=== PATIENT | male | born 1945 | race Caucasian/White ===

== ENCOUNTER 2019-07-28 17:42 | Inpatient (IN) ==
[2019-07-28] MEDS ORDERED: NS 1,000 ML IV ONE ×2 (17:53→20:33)
[2019-07-28] MEDS ORDERED: ZOFRAN IV ONE ×2 (17:53→20:27)
[2019-07-28] MEDS ORDERED: BENTYL IM ONE (18:08)
--- NOTE | 2019-07-28 18:12 | PROVIDER DOCUMENTATION ---
HPI-Abdominal Pain/GI Problem - General Chief Complaint: Nausea/Vomiting Stated Complaint: N/V Time Seen by Provider: 07/28/19 17:49 Source: patient Allergies/Adverse Reactions: Patient Allergies Allergy/AdvReac Type Severity Reaction Status Date / Time hydrocodone Allergy HIVES Verified 07/28/19 19:29 Home Medications: Home Medication List Medication Instructions Recorded Confirmed Last Taken Type Esomeprazole Magnesium [Nexium] 40 mg PO DAILY 05/17/14 07/28/19 03/13/15 19:00 History Diltiazem C.d. [Cardizem C.d] 240 mg PO DAILY 03/13/15 07/28/19 03/13/15 08:30 History Metoprolol Succinate E.r. [Toprol 100 mg PO BID 03/13/15 07/28/19 03/13/15 08:30 History Xl] Ezetimibe 10 mg PO DAILY 07/28/19 07/28/19 Unknown History Omeprazole 20 mg PO BID 07/28/19 07/28/19 Unknown History PRAVAstatin [Pravachol] 40 mg PO DAILY 07/28/19 07/28/19 Unknown History Sitagliptin Phos/Metformin HCl 50 mg PO DAILY 07/28/19 07/28/19 Unknown History [Janumet Xr 50-1,000 mg Tablet] Tamsulosin [Flomax] 0.4 mg PO DAILY 07/28/19 07/28/19 Unknown History - History of Present Illness-ABD Nature of Presenting Problems: 73 yr old M, hx of COPD, presenting with a two day hx of worsening SOB, nausea, vomiting (15 episodes in two days), abdominal soreness and bloody stools. No prior episodes; no sick contacts. No fever. Pt denies any changes to his routine; no recent surgeries; had a colonoscopy in February 2019. Abdominal Pain Onset Location: reports: LLQ Review of Systems - Adult - REVIEW OF SYSTEMS - ADULT Constitutional: reports: see HPI Eyes: reports: no symptoms reported Ears, Nose, Mouth & Throat: reports: no symptoms reported Cardiovascular: reports: no symptoms reported Respiratory: reports: see HPI Gastrointestinal: reports: see HPI Genitourinary: reports: no symptoms reported Musculoskeletal: reports: no symptoms reported Integumentary: reports: no symptoms reported Neurological: reports: no symptoms reported Psychiatric: reports: no symptoms reported Endocrine: reports: no symptoms reported Past History - Adult - PAST MEDICAL HISTORY-ADULT Review of Records: reports: Nursing Assessment Review Major Childhood Illnesses: reports: denies history Cardiovascular: reports: HTN Respiratory: reports: COPD Gastrointestinal: reports: GERD - PRIOR SURGERIES/PROCEDURES Surgical/Procedure History: reports: orthopedic (extremity) - IMMUNIZATION STATUS Childhood Immunizations: See Nurse Assessment Flu Vaccine: See Nurse Assessment - SOCIAL HISTORY Living Situation: family Physical Exam-General - PHYSICAL EXAM-ADULT Initial Vital Signs Reviewed: Yes - CONSTITUTIONAL General Appearance: alert, mild distress - EYES Eyes: PERRL/EOMI - HEAD, EARS, NOSE, MOUTH & THROAT HENMT: normocephalic/atraumatic, moist mucous membranes - RESPIRATORY Respiratory: chest non-tender, no respiratory distress, decreased breath sounds - CARDIOVASCULAR Cardiovascular: regular rate, rhythm - GASTROINTESTINAL (ABDOMEN) Abdominal Exam: soft, tenderness (generalized) - GENITOURINARY Rectal Exam: prostate enlarged/nodule Hemoccult Exam: heme negative stool - MUSCULOSKELETAL Extremity: no pedal edema - SKIN Integumentary: normal color, normal turgor, warm/dry - PSYCHIATRIC Psych/Mental Status: normal mood/affect, oriented x 3 Progress - PLAN OF CARE/RESULTS Progress/Plan/Lab Results: Orders Category Date Time Status AMYLASE [CHEM] Stat Lab 07/28/19 17:53 Uncollected CBC WITH ELECTRONIC DIFF [HEME] Stat Lab 07/28/19 17:52 Uncollected COMPREHENSIVE METABOLIC PANEL [CHEM] Stat Lab 07/28/19 17:53 Uncollected LIPASE [CHEM] Stat Lab 07/28/19 17:53 Uncollected 0.9% Sodium Chloride Inj [Ns] 1,000 ml Med 07/28/19 17:53 Active IV 999 mls/hr Ondansetron [Zofran] Med 07/28/19 17:53 Discontinued 8 mg IV NOW ONE Bladder scan at bedside shows post-void residual greater than 999mL; Ferrari cath placed and 1.1 L voided. Spoke with Dr. Henderson, who kindly accepts pt for admission; given WBC, platelike opacities that could be possible pneumonia on CT, and bladder findings. Result Diagrams: 07/28/19 19:04 07/28/19 19:04 - EKG 1 Time of EKG reading by physician:: 19:13 EKG Read and Signed by:: Liberty Huang EKG Interpretation (*Must complete 3 of following elements*): Abnormal Rate: 97 Rhythm: sinus rhythm [place]: normal QRS: normal, RBB (incomplete) MI Interval: normal ST Wave: normal - CT/MRI 1 CT Study: Abdomen, Pelvis Impression: See EMR Report CT Results: constipation, impaction; bladder outlet obstruction - CONSULTS/PCP/HOSPITALIST Notification #1 *Consult/PCP/Hospitalist*: Dr. Henderson Time Discussed: 21:45 Consult Disposition: Admit Departure - Departure Date of Disposition Decision: 07/28/19 Time of Disposition Decision: 21:46 DIAGNOSIS: Urinary (tract) obstruction Disposition: ADMITTED INPATIENT 09 Certified Medical Emergency: Emergent Condition: Fair - Critical Care Note This patient required my direct & personal management of CC.: No Attestation - Physician/ YARELI Attestation Patient care was provided by Advanced Practice Provider:: No The physician spent face to face time with patient:: Yes Advanced Practice Provider documentation review:: Supervising physician onsite and consulted in the evaluation and care of this patient. The physician did have a face to face encounter with the patient.
--- NOTE | 2019-07-28 18:58 | Diag Imaging Result Doc PS360 ---
EXAM: CHEST-2 VIEWS 07/28/2019 HISTORY: short of breath TECHNIQUE: AP and lateral chest COMMENT: There may be COPD. Compared to the previous study of 03/13/2015 there has been no significant change. IMPRESSION: Stable chest. Electronically signed by Akira Ragland 07/28/2019 6:56 PM
[2019-07-28] MEDS ORDERED: DUONEB (A & A) INH ONE (19:17)
[2019-07-28 19:25] LABS: BASO# 0.02 X1000 (0.0-0.2); BASO% 0.1 % (0.0-0.8); EOS# 0.07 X1000 (0.0-0.7); EOS% 0.4 % (0.0-10.0); HEMATOCRIT 45.4 % (42.0-52.0); IMM GRAN# 0.03 X1000 (0.0-0.04); IMM GRAN% 0.2 % (0.0-0.5); LYMPH# 0.89 X1000 (1.2-3.4); LYMPH% 5.4 % (20.5-51.1); MCH 29.1 PG (27-31); MCV 88.2 FL (81-99); MONO# 1.47 X1000 (0.11-0.59); MONO% 8.9 % (1.7-9.3); MPV 9.5 FL (7.4-10.4); NEUT# 14.08 X1000 (1.4-6.5); PLT 354 X1000 (130-400); RBC 5.15 XMIL (4.7-6.1); RDW 13.7 % (11.5-14.5); WBC 16.56 X1000 (4.8-10.8)
[2019-07-28 19:33] LABS: PROTIME 13.3 Seconds (11.0-16.0)
[2019-07-28 19:34] LABS: PTT 26.2 Seconds (22.3-41.8)
[2019-07-28 19:40] LABS: ALB/GLOB RATIO 1.6; ALBUMIN 4.8 g/dL (3.5-5.0); CALCIUM 10.9 mg/dL (8.8-10.2); CREATININE 1.4 mg/dL (0.7-1.2); POTASSIUM 5.1 mmol/L (3.5-5.1); TOTAL BILIRUBIN 0.64 mg/dL (0.20-1.00); TOTAL PROTEIN 7.8 g/dL (6.3-8.3)
[2019-07-28] MEDS ORDERED: COMPAZINE IV ONE (20:27)
--- NOTE | 2019-07-28 20:58 | EKG Report ---
Test Performed on : 07/28/2019 7:13:14 PM Test Reason : abdominal pain, nausea and vomiting Blood Pressure : / mmHG Vent. Rate : 097 BPM Atrial Rate : 097 BPM P-R Int : 136 ms QRS Dur : 094 ms QT Int : 366 ms P-R-T Axes : 022 007 044 degrees QTc Int : 464 ms Normal sinus rhythm. Incomplete right bundle branch block Borderline ECG When compared with ECG of 13-MAR-2015 20:33, premature atrial complexes. are no longer present Unconfirmed Result
--- NOTE | 2019-07-28 21:05 | Diag Imaging Result Doc PS360 ---
EXAM: CT ABD/PELVIS W/IV CONT ONLY 07/28/2019 HISTORY: abd pain, bloody stools TECHNIQUE: This exam was performed using automated exposure control, adjustment of mA or kV according to patient size, and/or use of iterative reconstruction technique. COMMENT: There are no previous studies available for comparison. There is some platelike opacity in the lung bases posteriorly particularly the right lower lobe which may be due to fibrosis or atelectasis. There are granulomata in the liver and spleen. There are no apparent gallstones. There is fluid in the stomach and the proximal esophagus. There is a hiatal hernia. There is some fluid and stool in the colon. Much of the small bowel contains fluid. The aorta is not distended. There is a horseshoe kidney. There may be 2 mm sized stones in both renal moieties. There are some cortical cysts. There is no evidence of significant adenopathy. The appendix is normal in appearance. There is diverticulosis in the descending colon. Pelvis: There is diverticulosis in the sigmoid colon without evidence of active diverticulitis. There is a large amount of stool in the rectum. The urinary bladder is distended and trabeculated. There is no free fluid. There is a right hydrocele. There is no evidence of acute bony abnormality. IMPRESSION: Fecal impaction and constipation. Diverticulosis coli. Gastroesophageal reflux. Bilateral nephrolithiasis. Bladder outlet obstruction versus functional urinary retention. Electronically signed by Akira Ragland 07/28/2019 9:02 PM
[2019-07-28 21:11] LABS: URINE SOURCE CLEAN CATCH
[2019-07-28 21:15] LABS: BILIRUBIN URINE NEGATIVE (NEGATIVE); BLOOD URINE TRACE (NEGATIVE); COLOR YELLOW; GLUCOSE URINE NEGATIVE (NEGATIVE); KETONE URINE NEGATIVE (NEGATIVE); LEUKOCYTES URINE SMALL (NEGATIVE); NITRITE URINE NEGATIVE (NEGATIVE); PH URINE 5.5; PROTEIN URINE TRACE mg/dL (NEGATIVE); SP GRAVITY URINE 1.018; TURBIDITY URINE CLEAR (CLEAR); UROBILINOGEN URINE NORMAL (NORMAL)
[2019-07-28 21:16] LABS: UR EPITHELIAL CELLS <10 /HPF (<10); URINE BACTERIA NEGATIVE /HPF; URINE RBC <10 /HPF (<10); URINE WBC <10 /HPF (<10)
[2019-07-28] MEDS ORDERED: FLEET ENEMA PR ONE (22:12)
[2019-07-28] MEDS ORDERED: FLOMAX PO ONE (22:28)
[2019-07-28] MEDS ORDERED: ZOFRAN IV PRN (22:59)
[2019-07-28] MEDS ORDERED: ALBUTEROL NEB INH PRN (22:59)
[2019-07-28] MEDS ORDERED: COMPAZINE IV PRN (22:59)
[2019-07-28] MEDS ORDERED: FLEET MINERAL OIL ENEMA PR ONE (22:59)
[2019-07-28] MEDS ORDERED: LACTULOSE PO SCH (22:59)
--- NOTE | 2019-07-28 23:06 | HISTORY AND PHYSICAL ---
PRIMARY CARE PHYSICIAN: Hector Conner Jr., MD REASON FOR ADMISSION: Two-day history of lower abdominal pain, vomiting and loose stools. HISTORY OF PRESENT ILLNESS: Mr. Osito Campo is a 73-year-old man with past medical history of COPD, BPH, hypertension, hyperlipidemia, type 2 diabetes. He comes in today complaining of worsening nausea with vomiting for the last 2 days. No hematemesis or coffee grounds. He also complains of lower abdominal pain radiating to his right flank, with no dysuria, fever or chills. He states that he has a longstanding history over a year of hesitancy, urgency, poor urinary stream and nocturia, and he has been on Flomax without any improvement. No weight loss. No hematuria. No penile discharge. Also over the last 2 days he has been having intermittent loose stools on 4 separate occasions. He has had blood in his stools. No melena noted. He has a longstanding history of COPD with dyspnea on exertion, but this has not worsened. No PND, orthopnea or chest pain. He does have chronic cough which occasionally produces whitish sputum. No focal neurological complaints. No polyuria or polydipsia. REVIEW OF SYSTEMS: Twelve-system review was done. Positive findings per HPI. ALLERGIES: Hydrocodone; questionable allergy to Cartia XT. HOME MEDICATIONS: He is supposed to be on diltiazem 240 mg daily; Zetia 10 mg daily; Flomax 0.4 mg daily; Janumet 1 tablet daily; Nexium 40 mg daily; omeprazole 20 mg b.i.d.; pravastatin 40 mg daily; Toprol-XL 100 mg b.i.d. 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 FAMILY HISTORY: Notable for heart disease, diabetes in first-degree relatives. SOCIAL HISTORY: He lives with his . He stopped smoking over 15 years ago. No alcohol or drug use. LABORATORY DATA: White count 16,000, hemoglobin and hematocrit 15 and 45, platelets 354,000, with 85% neutrophils. BUN is 20, creatinine 1.4, glucose 113, calcium 10.9. PT, PTT is normal. Urinalysis: Trace protein, trace blood, trace leukocytes. Fecal Hemoccult negative. DIAGNOSTIC DATA: CT abdomen showed urinary retention and profound constipation, with fecal impaction; reflux disease was also noted. Chest film was negative for any acute cardiorespiratory pathology. PHYSICAL EXAMINATION: GENERAL: Pleasant, elderly white male, not in acute distress. AAO x3. Normal mood and affect. HEENT: Head is normocephalic, atraumatic. Eyes: CHERIE, EOMI. He is anicteric. Not pale. ENT and oropharynx exam grossly normal. NECK: Supple. No JVD or carotid bruit. CHEST: Decreased air entry in both lung uribe with few wheezes. CARDIOVASCULAR: First and second heart sounds heard. No gallops, murmurs or rubs. Rhythm is regular. ABDOMEN: Distended, tympanic, with dullness in the lower abdominal area. The patient appears to have distended bladder based on palpation. No tenderness noted. No peritoneal signs noted. Bowel sounds are hypoactive. RECTAL: Exam was done by me afterwards. The patient has moderately enlarged prostate, smooth overlying mucosa. No nodule palpated. Surprisingly, no significant stool in the rectal vault. EXTREMITIES: Good distal pulse volumes, regular, symmetrical. No edema, clubbing or peripheral cyanosis. NEUROLOGICAL: No gross focal deficits. SKIN: Intact. No breakdown, lesion or erythema. Good turgor. MUSCULOSKELETAL: Exam is grossly normal. ASSESSMENT: 1. Acute urinary retention secondary to benign prostatic hypertrophy. 2. Chronic constipation, probably related to #1. 3. Hypertension. 4. Hyperlipidemia. 5. Chronic obstructive pulmonary disease. 6. Reactive leukocytosis. 7. Mild dehydration. 8. Reflux disease. 9. Hypertension. 10. Hyperlipidemia. 11. Type 2 diabetes. PLAN: We will hydrate the patient. Initiate Fleet enema after aggressive hydration so as to avoid worsening CAMELIA. The patient has already received 2 L, and we will continue maintenance fluids. We will also start the patient on lactulose and Dulcolax from above to induce defecation, to complement enema. I do not see any point in treating the patient empirically with any antibiotics, as no acute inflammatory or infectious process has yet been identified. If anything at all, the only source I can think of is that the patient may have a type of stercoral colitis. If white count continues to be elevated, we will cover for such colitis. Held and/or discontinued Cardizem due to the fact that this can cause constipation, and also because the patient says he has a questionable allergy to Cartia XT and its sister compounds. I have ordered a PSA and a Ferrari catheter has been placed. I am pretty sure the patient may end up needing surgical intervention, as the bladder picture noted on CT scan suggests this is a chronic type of urinary retention and there is a possibility that his bladder may have become atonic. In that case, he may end up getting a suprapubic cystostomy. The patient's bleeding could be from fecal impaction. If it continues while we relieve constipation, then he will need to see his GI doctor, Dr. Moreno, who the patient tells me did a colonoscopy less than a year ago and it was unremarkable. cc: MD Hector Gentile Jr, MD
[2019-07-29] MEDS: POTASSIUM CHLORIDE 10 MEQ in NS 1,000 ML IV SCH ×4 (00:29→17:17)
[2019-07-29] MEDS: DULCOLAX PO SCH ×3 (00:30→06:20)
[2019-07-29] MEDS: PRAVACHOL PO SCH ×2 (00:46→20:10)
[2019-07-29] MEDS: ZETIA PO SCH ×2 (00:46→20:10)
[2019-07-29] MEDS: TOPROL XL PO SCH ×3 (00:46→20:10)
[2019-07-29 07:42] LABS: BASO# 0.02 X1000 (0.0-0.2); BASO% 0.2 % (0.0-0.8); EOS# 0.07 X1000 (0.0-0.7); EOS% 0.8 % (0.0-10.0); HEMATOCRIT 35.5 % (42.0-52.0); HEMOGLOBIN 11.2 g/dL (14.0-18.0); LYMPH# 1.53 X1000 (1.2-3.4); LYMPH% 17.3 % (20.5-51.1); MCH 28.5 PG (27-31); MCHC 31.5 g/dL (33-37); MCV 90.3 FL (81-99); MONO# 1.12 X1000 (0.11-0.59); MONO% 12.6 % (1.7-9.3); MPV 9.9 FL (7.4-10.4); NEUT# 6.12 X1000 (1.4-6.5); NEUT% 69.1 % (42.2-75.2); PLT 274 X1000 (130-400); RBC 3.93 XMIL (4.7-6.1); RDW 13.7 % (11.5-14.5); WBC 8.86 X1000 (4.8-10.8)
[2019-07-29 07:45] LABS: AGAP 9; BUN 14 mg/dL (8-22); CALCIUM 8.6 mg/dL (8.8-10.2); CHLORIDE 109 mmol/L (98-107); COSMO 283; CREATININE 1.1 mg/dL (0.7-1.2); ESTIMATED GFR > 60; GLUCOSE 90 mg/dL (70-104); MAGNESIUM 1.7 mg/dL (1.5-2.7); POTASSIUM 4.5 mmol/L (3.5-5.1); SODIUM 142 mmol/L (136-145); TCO2 24 mmol/L (25-35)
[2019-07-29] MEDS ORDERED: ZETIA PO SCH (09:00)
[2019-07-29] MEDS ORDERED: TOPROL XL PO SCH (09:00)
[2019-07-29] MEDS ORDERED: FLOMAX PO SCH ×2 (09:00→21:00)
[2019-07-29] MEDS ORDERED: PRAVACHOL PO SCH (09:00)
[2019-07-29] MEDS: NEXIUM PO SCH (11:07)
[2019-07-29] MEDS: XANAX PO SCH ×3 (11:12→18:10)
--- NOTE | 2019-07-29 13:29 | PROGRESS NOTE ---
DATE: 07/29/2019 The patient is a 73-year-old white man who presented to the emergency room after a brief syncopal episode, complaining with some abdominal pain and difficulty in urinating. There was also mild chest discomfort on the left. VITAL SIGNS: Temperature 97.9 degrees, heart rate 70, respirations 20, blood pressure 110/50, O2 saturation on room air 95%. The patient had moderate anxiety and some diaphoresis yesterday prior to his syncopal episode. He has occasional anxiety and felt anxious yesterday afternoon. He was admitted by Dr. Henderson, hospitalist, with diagnoses of acute rare urinary retention secondary to BPH, chronic constipation, hypertension, hyperlipidemia, COPD, mild dehydration, type 2 diabetes. He is feeling a little better after hydration and enema. Urologic consultation is pending. LABORATORY: Sodium 142, potassium 4.5, BUN 14, creatinine 1.1, improved. Troponin T8, normal. ProBNP 81. TSH 2.5, PSA 1.15. EXAM: He has some mild costochondral tenderness left upper chest wall. There is no epigastric tenderness. PLAN: Add alprazolam 0.5 mg t.i.d. Urologic consultation will be done. He may need TURP. cc: MD Hector Bautista Jr, MD
--- NOTE | 2019-07-29 19:08 | CONSULTATION ---
DATE OF CONSULTATION: 07/29/2019 ATTENDING PHYSICIAN: Dr. Conner. REFERRING PHYSICIAN: Dr. Barraza. CHIEF COMPLAINT: Lower abdominal pain and vomiting. HISTORY OF PRESENT ILLNESS: This 73-year-old male was admitted with lower abdominal pain, vomiting and loose stools. He states he also saw blood in the urine. He states he has been having a decrease in the force and caliber of stream over the last several days. He states that before this he had no problems voiding. He is on Flomax either 0.4 mg a day or b.i.d. His is not sure. He denies any previous urologic surgery. He has no history of urinary infections. He has had no previous urologic surgery. PAST MEDICAL HISTORY: Hypertension, elevated cholesterol, COPD, gastroesophageal reflux disease and diabetes. 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 SOCIAL HISTORY: Cigarettes 2 packs a day for 25 years. He stopped smoking over 16 years ago. There is no alcohol use. HOME MEDICATIONS: Documented on the chart. He is currently on Flomax 0.4 mg daily. ALLERGIES: He is allergic to hydrocodone and Cartia XT. REVIEW OF SYSTEMS: Usually in good health. He denies any problems with strokes, seizures or recent pulmonary problems. He has had no hematuria. PHYSICAL EXAMINATION: General: A thin, age apparent, normally developed white male, oriented in all ways and cooperative. Somewhat drowsy in that he just took Xanax. HEENT: Normal for age. Lungs: Clear. Cardiovascular: Regular rate and rhythm without murmur. Abdomen: Mildly protuberant, soft, nontender. No hepatosplenomegaly or masses. Normal bowel sounds. : Normal male. Foreskin retracts. Ferrari catheter in place draining clear urine. 1500 mL out today. Both testes are down. Scrotal exam is normal. Rectal: Normal sphincter tone. Prostate about 50 g, smooth, and symmetric. Extremities: No C, C or E. Neurologic: No focal deficits. DIAGNOSTIC DATA: Laboratory evaluation had a PSA of 1.24 in May. His PSA on 07/28/2019 was 1.15. Serum electrolytes are normal. BUN 14, creatinine 1.1. CBC has a white count of 8.86, a hemoglobin 11.2, hematocrit 35.5 and platelets are 274,000. A urinalysis was clear. CT scan with contrast revealed a horseshoe kidney with a question of a small stone in each kidney. These were nonobstructing. Also mentioned was fecal impaction and diverticulosis without evidence of diverticulitis. IMPRESSION: 1. Urinary retention. 2. Constipation, fecal impaction on CT scan. 3. Horseshoe kidney with a small stone in each kidney that was not obstructing. RECOMMEND: 1. Address fecal impaction as is being done. 2. Increase Flomax to 0.4 mg b.i.d. 3. Keep Ferrari drainage for at least 5 days. We could do voiding trials in the office if he is sent home prior to 5 days. Thank you for this consultation. cc: MD Hector Harris Jr, MD
--- NOTE | 2019-07-30 08:42 | PROGRESS NOTE ---
DATE: 07/30/2019 SUBJECTIVE: Vital signs are stable with temperature of 98 degrees, heart rate 64, respirations 17, blood pressure 132/57, and O2 saturation on room air of 95%. He had several bowel movements overnight. His abdomen is soft and nontender. Urine in Ferrari is clear. Dr. Garcia was consulted and recommended leaving the Ferrari in, treating the constipation, and having him seen as an outpatient next week. There has been no further significant chest pain and no syncope. PLAN: Ambulate and allow him to be up in a chair as tolerated. Diet is increased. cc: MD Hector Bautista Jr, MD
[2019-07-30] MEDS: XANAX PO SCH ×3 (11:18→17:08)
[2019-07-30] MEDS: NEXIUM PO SCH (11:19)
[2019-07-30] MEDS: TOPROL XL PO SCH ×2 (11:19→22:23)
[2019-07-30] MEDS: ZETIA PO SCH (22:23)
[2019-07-30] MEDS: PRAVACHOL PO SCH (22:23)
[2019-07-30] MEDS: FLOMAX PO SCH (22:23)
[2019-07-31] MEDS: TOPROL XL PO SCH ×2 (09:24→21:07)
[2019-07-31] MEDS: NEXIUM PO SCH (09:24)
[2019-07-31] MEDS: FLOMAX PO SCH ×2 (09:25→21:07)
[2019-07-31] MEDS: XANAX PO SCH ×3 (09:25→18:05)
--- NOTE | 2019-07-31 09:27 | PROGRESS NOTE ---
DATE: 07/31/2019 SUBJECTIVE: The patient says he feels a little bit better. Bowel movement was closer to normal this morning. OBJECTIVE: Vital Signs: Blood pressure 143/65, respirations 15, pulse 56, temperature 97.5 degrees Fahrenheit. Oxygen saturation on room air is 97%. HEENT: Normocephalic. EOMS intact. PERRLA. Throat clear. Lungs: Clear to auscultation and percussion without rhonchi, rales, or wheezes. Heart: Regular rate and rhythm without murmurs, gallops, friction rubs. Abdomen: Soft. Active bowel sounds. No organomegaly or tenderness. Neurological exam: Intact grossly. ASSESSMENT: 1. Urinary retention. Now has a Ferrari catheter in; still has blood in his catheter and in his bag. 2. Fecal impaction with diarrhea around it. This is getting better. The patient had nausea, vomiting and diarrhea. This is just now getting a little bit better. PLAN: We will see how he does through the day. If there is no more blood in the urine and his stool is better, may consider discharge tomorrow depending on how he does and what Urology thinks. cc: Hector Conner Jr, MD
[2019-07-31] MEDS: MILK OF MAGNESIA PO PRN (18:05)
[2019-07-31] MEDS: ZETIA PO SCH (21:07)
[2019-07-31] MEDS: PRAVACHOL PO SCH (21:07)
[2019-08-01 08:05] VITALS: BP 126/66
--- NOTE | 2019-08-01 09:08 | DISCHARGE SUMMARY ---
ADMISSION DATE: 07/28/2019 DISCHARGE DATE: 08/01/2019 FINAL DIAGNOSES: 1. Urinary retention. 2. Fecal impaction. 3. Constipation. SECONDARY DIAGNOSES: 1. Diabetes mellitus. 2. Hyperlipidemia. 3. Gastroesophageal reflux disease. 4. Hypertension. DISCHARGE MEDICATIONS: The patient will be discharged on his home medications. He is already on Flomax 0.4 mg p.o. b.i.d. though his H P said once a day, he tells me he is already on a twice a day. FOLLOWUP: He will have followup with Urology on or Wednesday of this week for urodynamic flow studies and voiding studies. OBJECTIVE: Vital signs: Blood pressure is 126/66, respirations 17, pulse 58, temperature 98.1 degrees Fahrenheit. HEENT: Normocephalic. EOMs intact. PERRLA. Throat clear. Lungs: Clear to auscultation and percussion without rhonchi, rales, or wheezes. Heart: Regular rate and rhythm without murmurs, gallops, friction rubs. Abdomen: Soft. Active bowel sounds. No organomegaly or tenderness. Neurological: Intact grossly. DISCHARGE INSTRUCTIONS: He is now having good bowel movements, should take some MiraLAX over the counter once daily for the constipation issues. I will see him back in the office in the next week. Fecal impaction seems to have resolved. cc: Hector Conner Jr, MD
[2019-08-01] MEDS: NEXIUM PO SCH (09:23)
[2019-08-01] MEDS: TOPROL XL PO SCH (09:24)
[2019-08-01] MEDS: XANAX PO SCH (09:24)
[2019-08-01] MEDS: MILK OF MAGNESIA PO PRN (09:24)
[2019-08-01] MEDS: FLOMAX PO SCH (09:24)
[2019-08-01] MEDS ORDERED: PREVNAR 13 IM ONE (09:35)
[2019-08-01] MEDS ORDERED: FLU VACCINE IM ONE (09:35)
[2019-08-01] MEDS ORDERED: PNEUMOVAX 23 IM ONE (09:50)
== END 2019-08-01 11:45 | disposition home or self-care (01) | DRG 726 ==
LOC: SUPCPDRO → ED 17:42 → 1N 22:54 → SUATTDRO 22:54
PROVIDERS: ADMIT Emergency Medicine; ATTEND Emergency Medicine

== ENCOUNTER 2019-09-13 05:07 | Day surgery (SDC) ==
[2019-09-07 10:23] LABS: HEMATOCRIT 38.9 % (42.0-52.0); HEMOGLOBIN 12.3 g/dL (14.0-18.0); MCH 28.5 PG (27-31); MCHC 31.6 g/dL (33-37); MPV 9.3 FL (7.4-10.4); RBC 4.32 XMIL (4.7-6.1); RDW 14.3 % (11.5-14.5); WBC 8.4 X1000 (4.8-10.8)
[2019-09-07 11:05] LABS: AGAP 13; BUN 14 mg/dL (8-22); CALCIUM 9.5 mg/dL (8.8-10.2); CHLORIDE 102 mmol/L (98-107); COSMO 282; ESTIMATED GFR > 60; GLUCOSE 107 mg/dL (70-104); POTASSIUM 4.6 mmol/L (3.5-5.1); SODIUM 141 mmol/L (136-145); TCO2 26 mmol/L (25-35)
--- NOTE | 2019-09-12 18:38 | HISTORY AND PHYSICAL ---
CHIEF COMPLAINT: Urinary retention. HISTORY OF PRESENT ILLNESS: This 73-year-old male has a history of urinary retention that occurred after an episode of fecal impaction. After the fecal impaction was relieved, he has had multiple voiding trials without success. His cystoscopic exam revealed an enlarged obstructing prostate with grade 3 trabeculations and small diverticula throughout the bladder. The treatment for urinary retention includes clean intermittent catheterization, wearing a urethral Ferrari catheter or a suprapubic tube. Discussed transurethral resection of the prostate and placement of a suprapubic tube with the patient. He has decided on that surgery. PAST MEDICAL HISTORY: Gastroesophageal reflux disease, COPD, depression, diabetes, elevated cholesterol, hypertension. CURRENT MEDICATIONS: Include Flomax, diltiazem, Zetia, Janumet, metoprolol, omeprazole, pravastatin. PAST SURGICAL HISTORY: Bilateral hand surgery. SOCIAL HISTORY: No tobacco or alcohol use. ALLERGIES: He is allergic to hydrocodone. REVIEW OF SYSTEMS: He states usually he is in good health. A 14 point review of system was conducted and all negative. PHYSICAL EXAMINATION: GENERAL: A normally-developed, mildly obese, age apparent, white male, oriented in all ways and cooperative. HEENT: Normal for age. LUNGS: Clear. CARDIOVASCULAR: Regular rate and rhythm. ABDOMEN: Protuberant, soft, nontender. No hepatosplenomegaly or masses. Normal bowel sounds. : Normal circumcised male. Meatus is normal. Both testes are down and palpably normal. There are no inguinal hernias. RECTAL: Normal sphincter tone. Prostate 60 to 70 g, smooth, and symmetric. No nodules. EXTREMITIES: No clubbing, cyanosis, or edema. NEUROLOGIC: No focal deficits. IMPRESSION: Enlarged prostate with urinary retention. PLAN: Cystoscopic exam, transurethral resection of the prostate, and place suprapubic tube. The planned procedure, benefits versus risks, and possible complications including, but not limited to, bleeding, infection, not being able to start spontaneously voiding, retrograde ejaculation, formation of a bladder neck contracture or urethral stricture, continued erectile dysfunction was discussed. He seems to understand and desires to proceed. cc: Destin Garcia MD
[2019-09-13] MEDS ORDERED: LR 1,000 ML ONE (05:57)
[2019-09-13] MEDS ORDERED: KEFZOL 1 GM/D5W 2 GM/100 ML IVPB ONE (05:57)
[2019-09-13] MEDS ORDERED: DIPRIVAN 1% ONE (06:38)
[2019-09-13] MEDS ORDERED: SUFENTA ONE (06:41)
[2019-09-13] MEDS ORDERED: B & O 16A SUPP ONE (07:43)
[2019-09-13] MEDS ORDERED: QUELICIN (DOSE) ONE (07:45)
[2019-09-13] MEDS ORDERED: ROBINUL ONE (07:46)
[2019-09-13] MEDS ORDERED: DECADRON ONE (07:46)
[2019-09-13] MEDS ORDERED: ZOFRAN ONE (07:46)
[2019-09-13] MEDS ORDERED: EPHEDRINE ONE (07:46)
[2019-09-13] MEDS ORDERED: NS 1,000 ML ONE (08:57)
[2019-09-13] MEDS ORDERED: PHENERGAN IV PRN (09:36)
--- NOTE | 2019-09-13 09:37 | OPERATIVE NOTE ---
PROCEDURE DATE: 09/13/2019 SURGEON: Dr. Destin Garcia. PREOPERATIVE DIAGNOSIS: Enlarged prostate with obstructive voiding and urinary retention. POSTOPERATIVE DIAGNOSIS: Enlarged prostate with obstructive voiding and urinary retention. PROCEDURE PERFORMED: Cystoscopic exam, transurethral resection of the prostate, place suprapubic tube. ANESTHESIA: General via laryngeal mask. FINDINGS: Cystoscopic exam: Urethra-greater than 26-Welsh without stricture. Prostate-coapting lateral lobes, elevated bladder neck, length approximately 4 cm. Bladder-normal ureteral orifices bilaterally. Grade 3 trabeculations. Multiple cellules and diverticula throughout. Bullous edema along the anterior bladder, secondary to the indwelling Ferrari catheter. INDICATION FOR PROCEDURE: This 73-year-old male with long history of enlarged prostate with obstructive voiding. He developed urinary retention. He has been on maximum dose of Flomax and Avodart for his urinary retention. His cystoscopic exam revealed an enlarged prostate. DESCRIPTION OF PROCEDURE: After informed consent was obtained from the patient, him receiving IV antibiotics, he was taken to the main OR cystoscopy room, placed in supine position. General anesthesia via laryngeal mask was achieved. He was then placed in the low lithotomy position and prepped and draped in the usual sterile fashion for lower abdominal surgery and cystoscopic exam. A 21-Welsh sheath cystoscope was passed in the patient's urethra, prostate, and into the bladder with findings noted above. The cystoscope was removed. A 26-Welsh continuous flow resectoscope sheath was placed. The bipolar loop electrode was placed. Both ureteral orifices were visualized. The verumontanum was visualized. The resection was started at 6 o'clock position, going from the level of the bladder neck, level of the verumontanum, proceeding in a counterclockwise direction to the 2 o'clock position. Resection was then started back at the 6 o'clock position, going to the level of the bladder neck, level of the verumontanum, proceeding in a clockwise direction to the 10 o'clock position. Tissue from the anterior prostatic urethra was removed between the 2 o'clock and 10 o'clock positions from the level of the bladder neck, level of the verumontanum. Hemostasis was achieved with electrocautery. The chips were removed from the bladder with the Manta evacuators. The bladder neck was incised at the 6 o'clock position. At completion, both ureteral orifices were intact. The verumontanum was intact. The bladder was left distended. A stab incision was made 2 fingerbreadths above the pubic bone in the midline. The Caleb suprapubic tube introducer was pushed into the bladder under direct vision. The trocar was removed. A 16-Welsh Ferrari was passed through the sheath and into the bladder. Total of 10 mL sterile water was placed in the Ferrari's balloon. The sheath was removed. The Ferrari catheter was pulled back to the bladder wall. It was sutured to the skin with 0 silk. A dressing of gauze and paper tape was placed. He tolerated this procedure well. A 22-Welsh, three-way Ferrari catheter was passed through the patient's urethra and into the bladder. Total of 30 mL sterile water were placed in the Ferrari's balloon. The Ferrari was placed to gravity drain. The efflux was light pink. Continuous bladder irrigation was started and it completely cleared. The suprapubic tube was plugged. A 16-A B and O suppository was placed. He tolerated the procedure well. Estimated blood loss was 75 mL. He was taken to recovery room in good condition. cc: Destin Garcia MD
[2019-09-13] MEDS ORDERED: SODIUM CHLORIDE 0.9% INJ PRN (09:45)
[2019-09-13] MEDS ORDERED: D50W SYRINGE IV PRN (09:45)
[2019-09-13] MEDS: HUMULIN R SUBQ SCH ×3 (10:43→21:00)
[2019-09-13] MEDS: NS 1,000 ML IV SCH ×2 (11:08→23:27)
[2019-09-13] MEDS ORDERED: B & O 16A SUPP PR PRN (11:39)
[2019-09-13] MEDS: KEFZOL 1 GM/D5W 1 GM/50 ML IVPB IV SCH ×2 (14:57→22:25)
[2019-09-13] MEDS: ULTRAM PO PRN (14:57)
[2019-09-13] MEDS ORDERED: ZETIA PO SCH (21:00)
[2019-09-13] MEDS ORDERED: PRAVACHOL PO SCH (21:00)
[2019-09-13] MEDS ORDERED: FLOMAX PO SCH (21:00)
[2019-09-13] MEDS ORDERED: LEXAPRO PO SCH (21:00)
[2019-09-13] MEDS ORDERED: TOPROL XL PO SCH (21:00)
[2019-09-13] MEDS: PERIDEX MT SCH (22:25)
[2019-09-13] MEDS: PRILOSEC PO SCH (22:26)
[2019-09-13] MEDS: JANUVIA PO SCH (22:28)
[2019-09-13] MEDS: GLUCOPHAGE XR PO SCH (22:28)
[2019-09-14] MEDS: HUMULIN R SUBQ SCH (06:34)
[2019-09-14 08:10] VITALS: BP 109/53
[2019-09-14 08:11] LABS: HEMATOCRIT 36.9 % (42.0-52.0); HEMOGLOBIN 11.6 g/dL (14.0-18.0); MCH 28.4 PG (27-31); MCHC 31.4 g/dL (33-37); MCV 90.2 FL (81-99); MPV 9.6 FL (7.4-10.4); RBC 4.09 XMIL (4.7-6.1); RDW 14.3 % (11.5-14.5); WBC 11.68 X1000 (4.8-10.8)
[2019-09-14 08:22] LABS: AGAP 11; BUN 11 mg/dL (8-22); CALCIUM 8.7 mg/dL (8.8-10.2); CHLORIDE 103 mmol/L (98-107); COSMO 277; CREATININE 0.9 mg/dL (0.7-1.2); ESTIMATED GFR > 60; GLUCOSE 106 mg/dL (70-104); POTASSIUM 4.7 mmol/L (3.5-5.1); SODIUM 139 mmol/L (136-145); TCO2 25 mmol/L (25-35)
[2019-09-14] MEDS ORDERED: CARDIZEM CD PO SCH (09:00)
[2019-09-14] MEDS ORDERED: TOPROL XL PO SCH (09:00)
[2019-09-14] MEDS: PRILOSEC PO SCH (10:13)
[2019-09-14] MEDS: JANUVIA PO SCH (10:14)
[2019-09-14] MEDS: PERIDEX MT SCH (10:14)
[2019-09-14] MEDS: GLUCOPHAGE XR PO SCH (10:14)
[2019-09-14] MEDS: ULTRAM PO PRN (10:15)
== END 2019-09-14 10:40 | disposition home or self-care (01) ==
LOC: 4N 05:07 → OR 05:07
PROVIDERS: ATTEND Urology
PROC: UR.TURP (2019-09-13 06:59)